=== PATIENT | male | born 1940 | race Caucasian/White ===

== ENCOUNTER 2016-10-10 13:40 | Inpatient (IN) | payer OTHER ==
[~2016-10-10] VITALS: Ht 182.9 cm; Wt 88.7 kg
[~2016-10-10 13:40] MED LIST: BETA BLOCKER; CHOLESTEROL MED; PERCOCET 5/31 TABLET PO; PLAVIX75 MG PO
[2016-10-10 15:33] LABS: EOSINOPHIL (%) 0.2 % (0-5); HEMATOCRIT 42.1 % (38.0-50.0); IMMATURE GRANULOCYTE (%) 0.4 % (0.0-0.7); INSTRUMENT ABS NEUTROPHIL CT 5.9 K/uL; MCH 31.4 PG (29.0-34.0); MCHC 34.9 G/DL (30.0-36.0); MEAN PLAT.VOLUME 9.3 uM^3 (9.0-12.4); MONOCYTE (%) 6.8 % (3-12); MONOCYTE COUNT 0.6 K/uL (0-0.8); NEUTROPHIL (%) 68.9 % (45-76); NEUTROPHIL COUNT 5.9 K/uL (1.8-6.4); PLATELET COUNT 239 K/uL (156-360); RBC DIS.WIDTH-CV 11.2 % (11.8-14.6); RBC DIS.WIDTH-SD 36.7 % (39-53); RED BLOOD COUNT 4.68 M/uL (4.00-5.50); WHITE BLOOD COUNT 8.6 K/uL (4.1-10.2)
[2016-10-10 15:40] LABS: CHLORIDE 103 mEq/L (99-109); SODIUM 141 mEq/L (136-147)
[2016-10-10 15:42] LABS: GLUCOSE 109 mg/dL (70-99)
[2016-10-10 15:43] LABS: ANION GAP 11 MEQ/L (2-14)
[2016-10-10 15:45] LABS: SERUM ETHYL ALCOHOL < 10 mg/dL
[2016-10-10 15:46] LABS: GFR ESTIMATE (CALCULATED) > 59 mL/min/
[2016-10-10 15:47] LABS: UREA NITROGEN (BUN) 12 mg/dL (9-23)
[2016-10-10] MEDS ORDERED: RAMIPRIL10 MG PO (17:38)
[2016-10-10] MEDS ORDERED: CALAN40 MG PO (17:40)
[2016-10-10] MEDS ORDERED: TAMSULOSIN HCL0.4 MG PO (17:41)
[2016-10-10] MEDS ORDERED: PRAVASTATIN SOD40 MG PO (17:43)
[2016-10-10] MEDS ORDERED: LORATADINE10 M3 PO (17:43)
[2016-10-10 18:09] VITALS: BP 146/74
[2016-10-10 18:14] VITALS: BP 146/74
[2016-10-11 07:41] VITALS: BP 167/81
[2016-10-11 15:46] VITALS: BP 150/78
[2016-10-12 07:36] VITALS: BP 158/77
[2016-10-12 15:22] VITALS: BP 140/67
[2016-10-13 07:53] VITALS: BP 170/79
[2016-10-13 12:49] VITALS: BP 167/74
[2016-10-13 15:34] VITALS: BP 141/68
[2016-10-14 07:54] VITALS: BP 155/72
[2016-10-14] MEDS ORDERED: CALAN SR,COVER240 MG PO (10:12)
[2016-10-14] MEDS ORDERED: CITALOPRAM HBR10 MG PO (10:14)
[2016-10-14] MEDS ORDERED: ROPINIROLE HCL2 MG PO (10:14)
[2016-10-14 11:06] VITALS: BP 166/74
== END 2016-10-14 11:55 | disposition home or self-care (01) | DRG 885 ==
LOC: EME 13:40 → EDOF 16:25 → 1WEST 16:25 → ENRESERV 17:31 → 1WEST 18:04
PROVIDERS: Emergency Medicine
DX: F33.2 Major depressive disorder, recurrent severe without psychotic features (principal); R45.851 Suicidal ideations; F09 Unspecified mental disorder due to known physiological condition; G25.81 Restless legs syndrome; F41.9 Anxiety disorder, unspecified; G31.84 Mild cognitive impairment of uncertain or unknown etiology; I10 Essential (primary) hypertension; E78.5 Hyperlipidemia, unspecified; I25.10 Atherosclerotic heart disease of native coronary artery without angina pectoris; I25.2 Old myocardial infarction
CPT/HCPCS: 80048; 81003; 85025; 90839; 97150 GO; 97165 GO; 99281; 99284; G0480; Q0177

== ENCOUNTER → 2017-03-11 | Outpatient (CLI) | payer OTHER ==
[~2017-03-11] MED LIST changes: +CALAN SR,COVER240 MG PO; +CALAN40 MG PO; +CITALOPRAM HBR10 MG PO; +LORATADINE10 M3 PO; +PRAVASTATIN SOD40 MG PO; +RAMIPRIL10 MG PO; +ROPINIROLE HCL2 MG PO; +TAMSULOSIN HCL0.4 MG PO
== END | disposition home or self-care (01) ==
LOC: NUC 10:46
DX: Z98.890 Other specified postprocedural states (principal); M17.11 Unilateral primary osteoarthritis, right knee; M25.551 Pain in right hip; M16.11 Unilateral primary osteoarthritis, right hip
CPT/HCPCS: 78315; A9503